=== PATIENT | male | born 1985 | race Caucasian/White ===

== ENCOUNTER 2017-05-23 13:18 | Emergency (ER) | payer OTHER ==
[~2017-05-23] VITALS: Ht 182.9 cm; Wt 128.0 kg
[~2017-05-23 13:18] MED LIST: ALBUAER2 INH
[2017-05-23 13:29] VITALS: Ht 182.9 cm; Wt 128.0 kg
[2017-05-23] MEDS ORDERED: IBUPROFEN 600 MG TAB PO STA (13:37)
[2017-05-23] MEDS ORDERED: ACETAMINOPHEN 500 MG TAB PO STA (13:37)
--- NOTE | 2017-05-23 14:07 | EMERGENCY ROOM VISIT NOTE ---
History First contact with patient: 13:35 (Alka. Johnson MD) First contact with patient: 13:35 (Dorian Gamboa M.D.) Chief Complaint: FLU LIKE SX Stated Complaint: HEADACHE,STIFFNESS,FATIGUE History of Present Illness The patient is a 32 year old male who presents to the Emergency Room with complaints of frontal headaches, persistent dry cough, myalgias, fatigue. Also complaining of some dizziness but no falls and subjective neck stiffness, which started this morning when he awoke. All of his symptoms started Tuesday night, and ongoing since then. Headaches feels like previous headaches, no photo/phonophobia, not the worse headache he's ever had. He otherwise denies fevers/chills, sore throat, but has some voice hoarseness, no nasal congestion or rhinorrhea. No CP, palpitations, dyspnea, abdominal pain , lower extremity swelling or rashes. He is tolerating diet without nausea or vomiting, ambulating without exacerbating symptoms, and voiding and stooling appropriately. He has not tried any OTC meds at all. He did not get his flu shot this year. Is a never smoker. No known allergies. Sick contacts: none, but does work at [employer]. Source of History: patient Onset: 2 days ago Symptom Intensity: moderate Quality: ache Timing: intermittent Modifying Factors (Worsening): other (coughing) Modifying Factors (Relieving): rest Associated Symptoms: + neck pain, + fatigue (Alka. Johnson MD) Review of Systems See HPI for pertinent positives and negatives. A total of ten systems were reviewed and were otherwise negative. (Alka. Johnson MD) Past Medical/Surgical History Medical Problems: (1) HTN (hypertension) (Dorian Gamboa M.D.) Social History Smoking Status: Never Smoker Smokeless Tobacco Use: No Alcohol Use: none Drug Use: none Housing Status: lives alone Occupation Status: employed (Alka. Johnson MD) Current/Historical Medications Scheduled Oseltamivir (Tamiflu), 75 MG PO BID Physical Exam Vital Signs Date Time Temp Pulse Resp B/P (MAP) Pulse Ox O2 Delivery O2 Flow Rate FiO2 05/23/17 15:50 36.9 74 18 142/82 96 05/23/17 14:50 37.4 92 16 133/83 98 Room Air 05/23/17 13:29 36.8 100 20 180/84 99 Room Air (Dorian Gamboa M.D.) Physical Exam GENERAL: alert, well appearing, sitting in bed, no acute distress, non-toxic HEAD: Normocephalic, atraumatic. No sinus tenderness. EYES: PERRL, EOMI, normal sclera and conjunctiva EARS: Tympanic membranes within normal limits, no indication of effusion. OROPHARYNX: No exudate, no erythema. Lips, buccal mucosa, and tongue normal and mucous membranes are tacky NECK: Supple, cervical paraspinal muscle spasm, no nuchal rigidity, mild cervical adenopathy LUNGS: No reproducible chest tenderness. Clear to auscultation. Normal chest wall mechanics, good air entry. No crepitations, crackles, or wheezes HEART: RRR, S1 and S2 normal, no murmurs appreciated ABDOMEN: Soft, non-tender, normo-active bowel sounds, no masses, no rebound or guarding. BACK: Back is symmetrical on inspection, no deformities, no midline tenderness, no CVA tenderness. SKIN: Warm, pink, dry. No erythema, rashes, or bruising. EXTREMITIES: Grossly normal. Moving all 4 limbs, strength 5/5. No pitting edema. Calves non tender. NEURO: Alert, Ox3. No focal deficits. Normal sensorium, cranial nerves II-XII grossly intact, normal speech. Kernig and Brudzinski negative PSYCH: Mood and affect appropriate. (Alka. Johnson MD) Medical Decision & Procedures Laboratory Results Test 05/23/17 14:15 Influenza Type A (RT-PCR) POS for Influ A (NEG) Influenza Type B (RT-PCR) Neg for Influ B (NEG) Laboratory results reviewed by me (Dorian Gamboa M.D.) Medications Administered Medications (Trade) Dose Ordered Sig/Nya Route Start Time Stop Time Status Last Admin Dose Admin Ibuprofen (Motrin Tab) 600 mg NOW STAT PO 05/23/17 13:37 05/23/17 14:02 DC 05/23/17 14:11 600 MG Acetaminophen (Tylenol Tab) 1,000 mg NOW STAT PO 05/23/17 13:37 05/23/17 14:02 DC 05/23/17 14:11 1,000 MG Oseltamivir Phosphate (Tamiflu Cap) 75 mg NOW STAT PO 05/23/17 15:30 05/23/17 15:32 DC 05/23/17 15:45 75 MG (Dorian Gamboa M.D.) ED Course 13:07 Patient evaluated 13:25 Ordered acetaminophen, ibuprofen, and rapid flu test 14:15 Patient reassessed, states feeling better. IVF ordered - patient declined IVF 15:31 Tamiflu ordered (Alka. Johnson MD) Medical Decision The patient's care and disposition was discussed with Dr. Gamboa, Attending ED Physician. The patient's history was concerning for flu like symptoms. Differential diagnosis: Etiologies such as influenza, upper respiratory infection, pneumonia, asthma, musculoskeletal, gastrointestinal, as well as others were entertained. Physical examination: As above. No signs of meningismus. ER treatment provided: Ibuprofen and Tylenol was administered. Patient declined IV fluids. On reassessment the patient felt better. Diagnostic interpretation by me: Serology positive for influenza A The patient was informed about the findings as listed above. All questions were answered and he was pleased with the treatment. Return instructions were outlined and the patient was discharged in stable condition. Outpatient prescription management: Tamiflu 75mg BID x 5 days Referral: The patient was referred back to their primary care physician for follow-up in 2 to 3 days for a recheck of the current condition and monitoring of BP. (Alka. Johnson MD) Medication Reconcilliation Current Medication List: was personally reviewed by me (Alka. Johnson MD) Blood Pressure Screening Patient's blood pressure: Elevated blood pressure (Alka. Johnson MD) Impression Primary Impression: Influenza A Additional Impression: HTN (hypertension) Departure Information Dispostion Home / Self-Care Condition GOOD Prescriptions Oseltamivir (Tamiflu) 75 Mg Cap 75 MG PO BID, #9 CAP Prov: Alka. Johnson MD 05/23/17 Referrals No Doctor, Assigned (PCP) Patient Instructions My [facility] Resident Tracking Resident Involvement: Resident Care Provided Care Provided: Adult ED (Alka. Johnson MD) Resident Involvement: Resident Care Provided Care Provided: Adult ED (Dorian Gamboa M.D.) Problem Qualifiers Additional Impression: HTN (hypertension) Hypertension type: unspecified Qualified Codes: I10 - Essential (primary) hypertension
[2017-05-23] MEDS ORDERED: SODIUM CHLORIDE 0.9% 500ML 500 ML IV SCH (14:15)
--- NOTE | 2017-05-23 14:59 | EMERGENCY ROOM VISIT NOTE ---
History Report prepared by Maranda: Mahesh Billings Under the Supervision of: Dr. Dorina Gamboa M.D. First contact with patient: 13:35 Chief Complaint: FLU LIKE SX Stated Complaint: HEADACHE,STIFFNESS,FATIGUE History of Present Illness The patient is a 32 year old white male with a past medical history of hypertension who presents to the ED with a cc of a headache beginning two days ago. Positive dry cough, neck stiffness, body aches, fatigue, and dizziness. Negative falls, trauma, fevers, chills, sore throat, congestion, rhinorrhea, chest pain, shortness of breath, palpitations, nausea, vomiting, abdominal pain , rashes, or lower extremity pain. Over this time, the patient has been experiencing these multiple flu-like symptoms. He has not tried any over the counter medications to help his symptoms. He did not receive a flu shot this year. He denies any history of smoking and any known allergies. Source of History: patient Onset: two days ago Position: head Symptom Intensity: moderate Quality: ache Timing: constant Associated Symptoms: + cough, + neck pain, + fatigue, No fevers, No chills, No sorethroat, No chest pain, No SOB, No nausea, No vomiting, No abdominal pain , No rash Review of Systems See HPI for pertinent positives and negatives. A total of ten systems were reviewed and were otherwise negative. Past Medical & Surgical Medical Problems: (1) HTN (hypertension) Family History Patient reports no known family medical history. Social History Smoking Status: Never Smoker Smokeless Tobacco Use: No Alcohol Use: none Drug Use: none Housing Status: lives alone Occupation Status: employed Current/Historical Medications Scheduled Oseltamivir (Tamiflu), 75 MG PO BID Allergies Coded Allergies: No Known Allergies (Unverified , UNKNOWN, 05/23/17) Physical Exam Vital Signs Date Time Temp Pulse Resp B/P (MAP) Pulse Ox O2 Delivery O2 Flow Rate FiO2 05/23/17 15:50 36.9 74 18 142/82 96 05/23/17 14:50 37.4 92 16 133/83 98 Room Air 05/23/17 13:29 36.8 100 20 180/84 99 Room Air Physical Exam GENERAL: Awake, alert, well-appearing, NAD HENT: Normocephalic, atraumatic. EYES: Normal conjunctiva. Sclera non-icteric. NECK: Supple. No nuchal rigidity. FROM. RESPIRATORY: CTAB, no rhonchi, wheezing, crackles CARDIAC: RRR, no MRG ABDOMEN: Soft, obese, NTND, BS+ MSK: No chest wall TTP, no LE edema NEURO: GCS 15, CN 2-12 intact, moves all 4s on command SKIN: No rash or jaundice noted. Medical Decision & Procedures Laboratory Results Test 05/23/17 14:15 Influenza Type A (RT-PCR) POS for Influ A (NEG) Influenza Type B (RT-PCR) Neg for Influ B (NEG) Laboratory results reviewed by me Medications Administered Medications (Trade) Dose Ordered Sig/Nya Route Start Time Stop Time Status Last Admin Dose Admin Ibuprofen (Motrin Tab) 600 mg NOW STAT PO 05/23/17 13:37 05/23/17 14:02 DC 05/23/17 14:11 600 MG Acetaminophen (Tylenol Tab) 1,000 mg NOW STAT PO 05/23/17 13:37 05/23/17 14:02 DC 05/23/17 14:11 1,000 MG Oseltamivir Phosphate (Tamiflu Cap) 75 mg NOW STAT PO 05/23/17 15:30 05/23/17 15:32 DC 05/23/17 15:45 75 MG ED Course 1335: The patient was evaluated in room A2. A complete history and physical exam was performed. Medical Decision The patient is a 32 year old white male with a past medical history of hypertension who presents to the ED with a cc of of a headache beginning two days ago. Positive dry cough, neck stiffness, body aches, fatigue, and dizziness. Negative falls, trauma, fevers, chills, sore throat, congestion, rhinorrhea, chest pain, shortness of breath, palpitations, nausea, vomiting, abdominal pain, rashes, or lower extremity rashes. Differential diagnosis: Etiologies such as viral syndrome, otitis, pharyngitis, pneumonia, influenza, meningitis, urinary tract infection, sepsis, bacteremia, as well as others were entertained. Patient was seen and evaluated at the bedside after the resident physician. The patient has complaints of flulike symptoms that been ongoing 2 days. Patient looks fairly well. Patient does have a history of hypertension was told he needs to follow-up as an outpatient. Patient did test positive for flu. Patient was given a first dose of Tamiflu in a prescription for an outpatient. Patient did complain of some mild stiff neck however he has full range of motion of his neck and has no nuchal rigidity. I do not believe that the patient has any signs of meningismus and his symptoms are most likely related from the flu. I do not believe he requires an LP at this time. Patient was deemed suitable for outpatient follow-up and treatment at this time. I do not believe he requires any further lab work, imaging, or treatment. The patient was able tolerate by mouth at the bedside. Patient was given strict follow-up, discharge, and return precautions. All questions were answered. Patient was deemed suitable for outpatient follow-up at this time. Patient agreed with the plan of care and was safely discharged home. Medication Reconcilliation Current Medication List: was personally reviewed by me Blood Pressure Screening Patient's blood pressure: Elevated blood pressure Blood pressure disposition: Elevated BP felt to be situational Impression Primary Impression: Influenza Scribe Attestation The scribe's documentation has been prepared under my direction and personally reviewed by me in its entirety. I confirm that the note above accurately reflects all work, treatment, procedures, and medical decision making performed by me. Departure Information Dispostion Home / Self-Care Prescriptions Oseltamivir (Tamiflu) 75 Mg Cap 75 MG PO BID, #9 CAP Prov: Alka. Johnson MD 05/23/17 Referrals No Doctor, Assigned (PCP) Forms HOME CARE DOCUMENTATION FORM, IMPORTANT VISIT INFORMATION Patient Instructions My [facility] Additional Instructions You were seen in the ED today for flu-like symptoms. Flu swabs were taken. You were given some ibuprofen and Tylenol to manage your symptoms. Your vitals were noted to be improved. This was reassuring. Upon discharge, please continue rest, adequate fluid intake, and use of ibuprofen and/or Tylenol as needed for aches. We urge you to follow up with your PCP with regards to your blood pressure. Controlling blood pressure is important for skilled nursing health maintenance. You have been examined and treated today on an emergency basis only. This is not a substitute for, or an effort to provide, complete comprehensive medical care. It is impossible to recognize and treat all injuries or illnesses in a single emergency department visit. It is therefore important that you make a follow up with your physician for close monitoring. We urge you to return to ER if similar symptoms return or if you develop worsening or persistent dizziness, vomiting, headache, fevers, chest pains, difficulty breathing, black or bloody stools, slurred speech, numbness, weakness , visual changes, or as needed.
[2017-05-23 15:25] LABS: INFLUENZA B PCR Neg for Influ B (NEG)
[2017-05-23 15:27] LABS: INFLUENZA A PCR POS for Influ A (NEG)
[2017-05-23] MEDS ORDERED: OSELTAMIVIR PHOSPHATE 75 MG CAP PO STA (15:30)
[2017-05-23] MEDS ORDERED: OSEL75CA12 PO (15:34)
[2017-05-23 15:50] VITALS: BP 142/82; PULSE 74; TEMP 36.9; O2SAT 96
== END 2017-05-23 15:48 | disposition home or self-care (01) ==
LOC: C.EDB 13:19 → C.EDA 15:48
DX: J11.1 Influenza due to unidentified influenza virus with other respiratory manifestations (principal); I10 Essential (primary) hypertension